=== PATIENT | male | born 1990 | race American Indian/Alaskan Native ===

== ENCOUNTER 2017-05-21 14:54 | Emergency (ER) | payer MEDICAID, OTHER ==
[2017-05-21] MEDS ORDERED: levETIRAcetam 1,000 MG in Sodium Chloride 0.9% 100 ML IV ONE (15:15)
--- NOTE | 2017-05-21 15:17 | ED PDOC ---
Arrival/HPI - General Chief Complaint: Seizure Time Seen by Provider: 05/21/17 14:57 Historian: Patient - History of Present Illness Narrative History of Present Illness (Text): 05/21/17 15:11 27 year old male presents to the Emergency department status post seizure prior to arrival. Patient is postictal at this time. Patient recounts he was working on the [employer] at work ([employer] when he started thinking about his brother who recently . He then looked up at a light, felt a little dizzy and short of breath, felt his body begin to tense up, and then had a seizure. Patient states he may have a history of epilepsy. He believes he was supposed to be given a prescription for seizure medication but instead was only given patches for tobacco. Patient denies any fever, chills, chest pain, nausea, vomiting, diarrhea, urinary symptoms, back pain, neck pain, headache, or any other complaints. Time/Duration: Prior to Arrival Symptom Onset: Sudden Symptom Course: Improving Activities at Onset: Light Context: Work Past Medical History - Provider Review Nursing Documentation Reviewed: Yes - Infectious Disease Hx of Infectious Diseases: None - Neurological Hx Seizures: Yes - Psychiatric Hx Substance Use: No - Anesthesia Hx Anesthesia: No Hx Anesthesia Reactions: No Hx Malignant Hyperthermia: No Family/Social History - Physician Review Nursing Documentation Reviewed: Yes Family/Social History: Unknown Family HX Smoking Status: Never Smoked Hx Alcohol Use: No Hx Substance Use: No Allergies/Home Meds Allergies/Adverse Reactions: Allergies grass pollen Allergy (Verified 05/21/17 15:10) URTICARIA Review of Systems - Physician Review All systems were reviewed & negative as marked: Yes - Review of Systems Constitutional: absent: Fevers, Night Sweats Respiratory: SOB Cardiovascular: absent: Chest Pain Gastrointestinal: absent: Diarrhea, Nausea, Vomiting Genitourinary Male: absent: Dysuria Musculoskeletal: absent: Back Pain, Neck Pain Neurological: Dizziness, Seizure. absent: Headache Physical Exam Vital Signs Reviewed: Yes Vital Signs Temp Pulse Resp BP Pulse Ox 05/21/17 15:17 98.7 F 108 H 17 107/94 H 100 05/21/17 15:03 104 H 21 106/71 100 Blood Pressure: Normal Pulse: Tachycardic Respiratory Rate: Normal Appearance: Positive for: Well-Appearing, Non-Toxic, Comfortable Pain Distress: None Mental Status: Positive for: Alert and Oriented X 3 - Systems Exam Head: Present: Atraumatic, Normocephalic Pupils: Present: PERRL Extroacular Muscles: Present: EOMI Conjunctiva: Present: Normal Mouth: Present: Moist Mucous Membranes Neck: Present: Normal Range of Motion Respiratory/Chest: Present: Clear to Auscultation, Good Air Exchange. No: Respiratory Distress, Accessory Muscle Use Cardiovascular: Present: Regular Rate and Rhythm, Normal S1, S2. No: Murmurs Abdomen: Present: Normal Bowel Sounds. No: Tenderness, Distention, Peritoneal Signs Back: Present: Normal Inspection Upper Extremity: Present: Normal Inspection. No: Cyanosis, Edema Lower Extremity: Present: Normal Inspection. No: Edema Neurological: Present: GCS=15, CN II-XII Intact, Speech Normal, Other (patient is postictal) Skin: Present: Warm, Dry, Normal Color. No: Rashes Psychiatric: Present: Alert, Oriented x 3, Normal Insight, Normal Concentration Medical Decision Making ED Course and Treatment: 05/21/17 15:21 Impression: 27 year old male presents to the Emergency department status post seizure. Plan: -- Head CT without contrast -- EKG -- Urinalysis -- Labs -- Keppra -- Reassess and disposition Progress Notes: - Lab Interpretations Lab Results: 05/21/17 15:15 05/21/17 15:15 Lab Results 05/21/17 16:15: Urine Color Yellow, Urine Appearance Clear, Urine pH 7.0, Ur Specific [place] 1.015, Urine Protein Negative, Urine Glucose (UA) Negative, Urine Ketones Trace H, Urine Blood Negative, Urine Nitrate Negative, Urine Bilirubin Negative, Urine Urobilinogen 4.0 H, Ur Leukocyte Esterase Negative 05/21/17 16:10: Urine Opiates Screen Negative, Urine Methadone Screen Negative, Ur Barbiturates Screen Negative, Ur Phencyclidine Scrn Negative, Ur Amphetamines Screen Negative, U Benzodiazepines Scrn Positive, U Oth Cocaine Metabols Negative, U Cannabinoids Screen Negative 05/21/17 15:15: Alcohol, Quantitative < 10 05/21/17 15:15: Sodium 142, Potassium 3.7, Chloride 105, Carbon Dioxide 26, Anion Gap 15, BUN 20, Creatinine 1.1, Est GFR ( Amer) > 60, Est GFR (Non- Af Amer) > 60, Random Glucose 94, Calcium 9.4, Total Bilirubin 0.4, AST 39, ALT 45, Alkaline Phosphatase 151 H, Lactate Dehydrogenase 389, Total Creatine Kinase 210, Troponin I < 0.01, Total Protein 7.2, Albumin 4.1, Globulin 3.1, Albumin/Globulin Ratio 1.3 05/21/17 15:15: PT 11.5, INR 1.01 05/21/17 15:15: WBC 6.3, RBC 3.64, Hgb 12.5 L, Hct 37.4 L, MCV 102.7, MCH 34.3, MCHC 33.4, RDW 11.8, Plt Count 156, MPV 10.7, Gran % 58.7, Lymph % (Auto) 31.4, [place] % (Auto) 5.9, Eos % (Auto) 3.8, Baso % (Auto) 0.2, Gran # 3.68, Lymph # ( Auto) 2.0, [place] # (Auto) 0.4, Eos # (Auto) 0.2, Baso # (Auto) 0.01 05/21/17 15:14: POC Glucose (mg/dL) 100 - RAD Interpretation Narrative RAD Interpretations (Text): 05/21/2017 17:15:10 PROCEDURE: CT HEAD WITHOUT CONTRAST. FINDINGS: HEMORRHAGE: No intracranial hemorrhage. BRAIN: No mass effect or edema. No atrophy or chronic microvascular ischemic changes. VENTRICLES: Unremarkable. No hydrocephalus. CALVARIUM: Unremarkable. PARANASAL SINUSES: Unremarkable as visualized. No significant inflammatory changes. MASTOID AIR CELLS: Unremarkable as visualized. No inflammatory changes. OTHER FINDINGS: None. IMPRESSION: No acute findings Radiology Orders: 05/21/17 15:13 HEAD W/O CONTRAST [CT] Stat - EKG Interpretation EKG Interpretation (Text): 05/21/17 15:15 EKG: Ordered, reviewed, and independently interpreted the EKG. Rate : 101 BPM Rhythm : Sinus tachycardia Interpretation : Normal axis, normal intervals. Interpreted by ED Physician: Yes Type: 12 lead EKG - Medication Orders Current Medication Orders: Discontinued Medications Levetiracetam 1,000 mg/ Sodium (Chloride) 110 mls @ 440 mls/hr IV ONCE ONE Stop: 05/21/17 15:29 Last Admin: 05/21/17 15:32 Dose: 440 mls/hr eMAR Start Stop Document 05/21/17 15:32 EWO (Rec: 05/21/17 15:33 EWO [id number]) Intravenous Solution Start Date 05/21/17 Start Time 15:32 End Date 05/21/17 End time 15:47 Total Infusion Time 15 - PA / [employer] / Resident Statement MD/DO has reviewed & agrees with the documentation as recorded. - Scribe Statement The provider has reviewed the documentation as recorded by the Scribe Bennie Hinton Provider Scribe Attestation: All medical record entries made by the Scribe were at my direction and personally dictated by me. I have reviewed the chart and agree that the record accurately reflects my personal performance of the history, physical exam, medical decision making, and the department course for this patient. I have also personally directed, reviewed, and agree with the discharge instructions and disposition. Disposition/Present on Arrival - Present on Arrival Any Indicators Present on Arrival: No History of DVT/PE: No History of Uncontrolled Diabetes: No Urinary Catheter: No History of Decub. Ulcer: No History Surgical Site Infection Following: None - Disposition Have Diagnosis and Disposition been Completed?: Yes Diagnosis: Seizure disorder, Epilepsy Disposition: HOME/ ROUTINE Disposition Time: 18:22 Patient Plan: Discharge Condition: GOOD Discharge Instructions (ExitCare): Epilepsy in Adults, Seizures, Adult (DC) Additional Instructions: [place]- Don't Drive or operate heavy machinery. Take the keppra twice a day. Follow up with your Neurologist or Dr Dahl. Return to us if any problems. Suman- Dr. Nito Perez Prescriptions: levETIRAcetam [Keppra] 500 mg PO BID #60 tab Referrals: Brad Lyons, [Primary Care Provider] - Follow up with primary Forms: [employer] ([place])
[2017-05-21 15:19] VITALS: TEMP 98.7
[2017-05-21 15:26] LABS: BASO # 0.01 K/mm3 (0.0-2.0); BASO % 0.2 % (0.0-3.0); EOS # 0.2 (0.0-0.7); EOS % 3.8 % (1.5-5.0); GRAN # 3.68 (1.4-6.5); GRAN % 58.7 % (50.0-68.0); HEMOGLOBIN 12.5 g/dL (14.0-18.0); LYMPH % 31.4 % (22.0-35.0); MEAN CELL VOLUME 102.7 fl (80.0-105.0); MEAN CORPUSCULAR HEMOGLOBIN 34.3 pg (25.0-35.0); MEAN CORPUSCULAR HGB CONC 33.4 g/dl (31.0-37.0); MEAN PLATELET VOLUME 10.7 fl (7.0-11.0); MONO # 0.4 (0.1-0.6); MONO % 5.9 % (1.0-6.0); RBC 3.64 10^6/uL (3.5-6.1); RED CELL DISTRIBUTION WIDTH 11.8 % (11.5-14.5); WHITE BLOOD COUNT 6.3 10^3/ul (4.5-11.0)
[2017-05-21 15:36] LABS: ALB/GLOB RATIO 1.3 (1.1-1.8); ALBUMIN 4.1 g/dL (3.0-4.8); CALCIUM 9.4 mg/dL (8.4-10.5); GFR AFRICAN-AMERICAN > 60; GFR NON-AFRICAN AMERICAN > 60
[2017-05-21 15:47] LABS: TROPONIN I < 0.01 ng/mL
[2017-05-21 15:53] LABS: INR 1.01 (0.93-1.08); PROTHROMBIN TIME 11.5 SECONDS (9.4-12.5)
[2017-05-21 16:12] LABS: ALT/SGPT 45 U/L (7-56); AST/SGOT 39 U/L (17-59); BLOOD UREA NITROGEN 20 mg/dL (7-21)
[2017-05-21 16:24] LABS: URINE BILIRUBIN NEGATIVE (NEGATIVE); URINE BLOOD NEGATIVE (NEGATIVE); URINE GLUCOSE (UA) NEGATIVE (NEGATIVE); URINE LEUKOCYTE ESTERASE NEGATIVE Leu/uL (NEGATIVE); URINE NITRATE NEGATIVE (NEGATIVE); URINE PROTEIN NEGATIVE mg/dL (<30 mg/dL)
[2017-05-21 17:13] LABS: URINE APPEARANCE CLEAR (CLEAR); URINE COLOR YELLOW (YELLOW)
--- NOTE | 2017-05-21 17:16 | CT ---
PROCEDURE: CT HEAD WITHOUT CONTRAST. HISTORY: seizure COMPARISON: None available. TECHNIQUE: Axial computed tomography images were obtained through the head/brain without intravenous contrast. Radiation dose: Total exam DLP = 893 mGy-cm. This CT exam was performed using one or more of the following dose reduction techniques: Automated exposure control, adjustment of the mA and/or kV according to patient size, and/or use of iterative reconstruction technique. FINDINGS: HEMORRHAGE: No intracranial hemorrhage. BRAIN: No mass effect or edema. No atrophy or chronic microvascular ischemic changes. VENTRICLES: Unremarkable. No hydrocephalus. CALVARIUM: Unremarkable. PARANASAL SINUSES: Unremarkable as visualized. No significant inflammatory changes. MASTOID AIR CELLS: Unremarkable as visualized. No inflammatory changes. OTHER FINDINGS: None. IMPRESSION: No acute findings
[2017-05-21 17:33] LABS: BARBITURATES, UR NEGATIVE (NEGATIVE); BENZODIAZEPINES, UR POSITIVE (NEGATIVE); OPIATES, UR NEGATIVE (NEGATIVE); PHENCYCLIDINE, UR NEGATIVE (NEGATIVE)
[2017-05-21 18:36] VITALS: BP 127/79; PULSE 89; RESP 18; O2SAT 98
--- NOTE | 2017-05-22 09:53 | CARD ---
APPROVED REPORT EKG Measurement Heart [id number] <Conclusion> Sinus tachycardia Otherwise normal ECG
== END 2017-05-21 18:37 | disposition home or self-care (01) ==
LOC: ED 14:54
DX: G40.909 Epilepsy, unspecified, not intractable, without status epilepticus (principal); Y93.G2 Activity, grilling and smoking food
CPT/HCPCS: 70450; 80053; 81003; 82550; 82948; 83615; 84484; 85025; 85610; 93005; 99285; G0480; J1953

== ENCOUNTER 2017-06-05 17:57 | Emergency (ER) | payer MEDICAID ==
[2017-06-05 18:08] VITALS: TEMP 99.9
[2017-06-05 18:09] VITALS: BMI 17.4
--- NOTE | 2017-06-05 18:15 | ED PDOC ---
Arrival/HPI - General Chief Complaint: Seizure Time Seen by Provider: 06/05/17 18:05 Historian: Patient EM Caveat: Altered Mental Status - History of Present Illness Narrative History of Present Illness (Text): 06/05/17 18:19 Pt is a 27 year old male who presents to the Emergency department status post seizure prior to arrival. 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 He describes feeling short of breath then his body began to tense up as he had a seizure. Patient states he has epilepsy for which he was given medication but never takes it. Patient denies any fever, chills, chest pain, nausea, vomiting, diarrhea, urinary symptoms, back pain, neck pain, headache, or any other complaints. Time/Duration: Prior to Arrival Symptom Onset: Sudden Symptom Course: Intermittent Severity Level: 4 Activities at Onset: Rest, Light Context: Work Past Medical History - Provider Review Nursing Documentation Reviewed: Yes - Travel History Have you recently traveled outside [place] w/in the past 3 mons?: No - Infectious Disease Hx of Infectious Diseases: None - Neurological Hx Seizures: Yes - Psychiatric Hx Substance Use: No - Anesthesia Hx Anesthesia: No Hx Anesthesia Reactions: No Hx Malignant Hyperthermia: No Family/Social History - Physician Review Nursing Documentation Reviewed: Yes Family/Social History: Unknown Family HX Smoking Status: Never Smoked Hx Alcohol Use: No Hx Substance Use: No Allergies/Home Meds Allergies/Adverse Reactions: Allergies grass pollen Allergy (Verified 05/21/17 15:10) URTICARIA Review of Systems - Review of Systems Systems not reviewed;Unavailable: Altered Mental Status Constitutional: Normal Eyes: Normal ENT: Normal Respiratory: Normal Cardiovascular: Normal Gastrointestinal: Normal Genitourinary Male: Normal Musculoskeletal: Normal Skin: Normal Neurological: Dizziness Endocrine: Normal Hemo/Lymphatic: Normal Psychiatric: Normal Physical Exam Vital Signs Reviewed: Yes Vital Signs Temp Pulse Resp BP Pulse Ox 06/05/17 20:52 78 18 124/65 98 06/05/17 18:06 99.9 F H 89 20 158/61 H 96 Temperature: Afebrile Blood Pressure: Normal Pulse: Regular Respiratory Rate: Normal Appearance: Positive for: Well-Appearing, Non-Toxic, Comfortable Pain Distress: None Mental Status: Positive for: Alert and Oriented X 3 - Systems Exam Head: Present: Atraumatic, Normocephalic Pupils: Present: PERRL Extroacular Muscles: Present: EOMI Conjunctiva: Present: Normal Mouth: Present: Moist Mucous Membranes Neck: Present: Normal Range of Motion Respiratory/Chest: Present: Clear to Auscultation, Good Air Exchange. No: Respiratory Distress, Accessory Muscle Use Cardiovascular: Present: Regular Rate and Rhythm, Normal S1, S2. No: Murmurs Abdomen: Present: Normal Bowel Sounds. No: Tenderness, Distention, Peritoneal Signs Back: Present: Normal Inspection Upper Extremity: Present: Normal Inspection. No: Cyanosis, Edema Lower Extremity: Present: Normal Inspection. No: Edema Neurological: Present: GCS=15, CN II-XII Intact, Speech Normal Skin: Present: Warm, Dry, Normal Color. No: Rashes Psychiatric: Present: Alert, Oriented x 3, Normal Insight, Normal Concentration Medical Decision Making ED Course and Treatment: 06/05/17 18:22 Impression Pt is a 27 year old male who presents to the Emergency department status post seizure prior to arrival. during history, pt had pseudoseizure but responded to voices Plan -- EKG -- Urinalysis -- Labs -- Keppra -- Reassess and disposition Progress Note Pt threatening to leave AMA Wants to go home convinced pt to stay for tx Family at bedside Pt requesting a lower dose of Keppra as the current dose is too strong; makes him very tired at work Pt refused to take STAT Keppra that was ordered; was advised that he could have another seizure without the medication; pt understood and verbalized that he'd like to go home VSS and ambulated well out of the ED AMA This patient is choosing to leave against medical advice. The EP has personally explained to the pt that choosing to do so may result in permanent bodily harm or . The EP discussed at great length that without further evaluation and monitoring there may be unforeseen circumstances and/or deterioration causing permanent bodily harm or as a result of their choice. The pt verbalized these risks back to the physician in laymans terms. The pt is alert, oriented, and shows the mental capacity to make clear decisions regarding the pts health care at this time. The pt continues to wish to leave against medical advice. 06/05/17 23:17 - Lab Interpretations Lab Results: 06/05/17 19:45 06/05/17 19:45 Lab Results 06/05/17 19:45: Sodium 140, Potassium 3.8, Chloride 103, Carbon Dioxide 31, Anion Gap 10, BUN 17, Creatinine 1.2, Est GFR ( Amer) > 60, Est GFR (Non- Af Amer) > 60, Random Glucose 85, Calcium 9.3, Magnesium 1.9, Total Bilirubin 0.3, AST 34, ALT 33, Alkaline Phosphatase 156 H, Total Protein 6.9, Albumin 3.8 , Globulin 3.1, Albumin/Globulin Ratio 1.2 06/05/17 19:45: WBC 6.4, RBC 3.50, Hgb 12.1 L, Hct 35.3 L, MCV 100.9, MCH 34.6, MCHC 34.3, RDW 11.8, Plt Count 175, MPV 10.6, Gran % 55.9, Lymph % (Auto) 34.8, [place] % (Auto) 5.0, Eos % (Auto) 4.1, Baso % (Auto) 0.2, Gran # 3.58, Lymph # ( Auto) 2.2, [place] # (Auto) 0.3, Eos # (Auto) 0.3, Baso # (Auto) 0.01 I have reviewed the lab results: Yes - Medication Orders Current Medication Orders: Discontinued Medications Levetiracetam (Keppra 500mg Ivpb) 500 mg in 100 mls @ 400 mls/hr IV STAT STA Stop: 06/05/17 18:44 Disposition/Present on Arrival - Present on Arrival Any Indicators Present on Arrival: Yes History of DVT/PE: No History of Uncontrolled Diabetes: No Urinary Catheter: No History Surgical Site Infection Following: None - Disposition Have Diagnosis and Disposition been Completed?: Yes Diagnosis: Epilepsy Disposition: HOME/ ROUTINE Disposition Time: 20:27 Patient Plan: Discharge Condition: GOOD Discharge Instructions (ExitCare): Seizures, Adult (DC) Additional Instructions: Tavo Hyatt Please take the medications as prescribed but keep in mind that you must follow- up with a Primary Care doctor. If you continue to have seizures despite taking the medication we have given you , return to the ER immediately Be Well Prescriptions: Levetiracetam [Keppra] 250 mg PO BID 10 Days #20 tablet Referrals: Brad Lyons, [Non-Staff] - Follow up with primary [facility] [Outside] - Follow up with primary Forms: [employer] Jose Raul ([place])
[2017-06-05] MEDS ORDERED: levETIRAcetam 500mg IVPB 500 MG/100 ML BAG IV STA (18:30)
[2017-06-05 20:12] LABS: ALB/GLOB RATIO 1.2 (1.1-1.8); ALBUMIN 3.8 g/dL (3.0-4.8); ALT/SGPT 33 U/L (7-56); AST/SGOT 34 U/L (17-59); BLOOD UREA NITROGEN 17 mg/dL (7-21); CALCIUM 9.3 mg/dL (8.4-10.5); GFR AFRICAN-AMERICAN > 60; GFR NON-AFRICAN AMERICAN > 60
[2017-06-05 20:15] LABS: BASO # 0.01 K/mm3 (0.0-2.0); BASO % 0.2 % (0.0-3.0); EOS # 0.3 (0.0-0.7); EOS % 4.1 % (1.5-5.0); GRAN # 3.58 (1.4-6.5); GRAN % 55.9 % (50.0-68.0); HEMOGLOBIN 12.1 g/dL (14.0-18.0); LYMPH # 2.2 (1.2-3.4); LYMPH % 34.8 % (22.0-35.0); MEAN CELL VOLUME 100.9 fl (80.0-105.0); MEAN CORPUSCULAR HEMOGLOBIN 34.6 pg (25.0-35.0); MEAN CORPUSCULAR HGB CONC 34.3 g/dl (31.0-37.0); MEAN PLATELET VOLUME 10.6 fl (7.0-11.0); MONO # 0.3 (0.1-0.6); RBC 3.5 10^6/uL (3.5-6.1); RED CELL DISTRIBUTION WIDTH 11.8 % (11.5-14.5); WHITE BLOOD COUNT 6.4 10^3/ul (4.5-11.0)
[2017-06-05 20:52] VITALS: BP 124/65; PULSE 78; RESP 18; O2SAT 98
== END 2017-06-05 20:57 | disposition home or self-care (01) ==
LOC: ED 17:57
DX: G40.909 Epilepsy, unspecified, not intractable, without status epilepticus (principal)